=== PATIENT | female | born 1995 | race Caucasian/White ===

== ENCOUNTER → 2018-12-31 | Outpatient (CLI) | payer MEDICAID ==
[~2018-12-31] VITALS: Ht 149.9 cm; Wt 41.4 kg
[~2018-12-31] MED LIST: PRENATAL MULTI1 EAC3 PO
[2018-12-31 12:46] VITALS: BP 115/59
[2018-12-31 13:44] LABS: ALBUMIN 4.5 g/dL (3.5-5.0)
[2018-12-31 13:45] LABS: POTASSIUM 3.7 mmol/L (3.5-5.1)
[2018-12-31 13:46] LABS: CALCIUM 9.8 mg/dL (8.3-10.5)
[2018-12-31 13:47] LABS: TOTAL PROTEIN 8.2 g/dL (6.4-8.3)
[2018-12-31 13:49] LABS: TOTAL BILIRUBIN 0.4 mg/dL (0.2-1.2)
--- NOTE | 2018-12-31 14:35 | NUR ---
IV FLUIDS COMPLETE AND FRANCI CHRISTENSEN NOTIFIED. SHE IS AT BEDSIDE WITH PATIENT.
[2018-12-31 14:44] VITALS: BP 129/52
== END ==
LOC: EDSTATUS 00:37 → AMSURD 13:00
PROVIDERS: Nurse Practitioner
DX: Z32.00 Encounter for pregnancy test, result unknown (principal)
CPT/HCPCS: J7030

== ENCOUNTER → 2020-07-08 | Outpatient (CLI) | payer MEDICAID ==
[2018-12-31 14:44] VITALS: BP 129/52
== END ==
LOC: LAB 09:34
DX: Z20.822 Contact with and (suspected) exposure to COVID-19 (principal)